=== PATIENT | male | born 1985 | race Caucasian/White ===

== ENCOUNTER 2023-04-19 21:08 | Emergency (ER) | payer SELFPAY ==
[~2023-04-19] VITALS: Ht 172.7 cm; Wt 98.6 kg
[2023-04-19 21:30] VITALS: BP 137/98; PULSE 93; RESP 16; TEMP 99.4; O2SAT 97
[2023-04-19 21:55] LABS: BASOPHILS % 0.3 % (0.0-2.0); EOSINOPHILS % 0.4 % (0.0-5.0); HEMATOCRIT. 42.1 % (42.0-52.0); HEMOGLOBIN. 14.1 g/dL (14.0-18.0); LYMPHOCYTES % 36.6 % (20.0-50.0); MEAN CORPUSCULAR HEMOGLOBIN 30.7 pg (28.0-32.0); MEAN CORPUSCULAR VOLUME 91.9 fL (80.0-94.0); MEAN PLATELET VOLUME 10.6 fl (7.4-10.4); MONOCYTES % 13.6 % (2.0-8.0); NEUTROPHILS % 49.1 % (40.0-76.0); PLATELET 151 x1000/uL (130-400); RED BLOOD CELL COUNT 4.58 mill/uL (4.7-6.1); RED CELL DISTRIBUTION WIDTH 15.1 % (11.6-14.6)
[2023-04-19 22:03] LABS: CHLORIDE 111 mEq/L (98-107)
== END 2023-04-20 01:17 | disposition home or self-care (01) ==
LOC: ER 04-20
DX: R07.89 Other chest pain (principal); Z98.890 Other specified postprocedural states
CPT/HCPCS: 36415; 71045; 80053; 84484; 85025; 93005; 99285

== ENCOUNTER 2023-06-01 02:26 | Emergency (ER) | payer SELFPAY ==
[~2023-06-01] VITALS: Ht 172.7 cm; Wt 100.0 kg
[2023-06-01 02:40] VITALS: BP 124/81; PULSE 101; RESP 16; TEMP 98.3; O2SAT 97
[2023-06-01] MEDS ORDERED: POLY10DR LEFTEYE (04:31)
== END 2023-06-01 04:56 | disposition home or self-care (01) ==
LOC: ER 02:26
DX: H10.33 Unspecified acute conjunctivitis, bilateral (principal); Z88.5 Allergy status to narcotic agent; Z98.890 Other specified postprocedural states
CPT/HCPCS: 99281

== ENCOUNTER 2023-06-06 10:28 | Emergency (ER) | payer MEDICAID ==
[~2023-06-06] VITALS: Ht 172.7 cm; Wt 100.0 kg
[~2023-06-06 10:28] MED LIST: POLY10DR LEFTEYE
[2023-06-06 10:48] VITALS: O2SAT 97
[2023-06-06 12:26] LABS: CLARITY URINE CLOUDY (CLEAR); COLOR URINE DARK YELLOW (YELLOW); GLUCOSE URINE NEGATIVE (NEGATIVE); KETONES URINE 1+ (NEGATIVE); LEUKOCYTE ESTERASE URINE NEGATIVE (NEGATIVE); NITRITE URINE NEGATIVE (NEGATIVE); OCCULT BLOOD URINE NEGATIVE (NEGATIVE); PH URINE 5.5 (4.5-8.0); PROTEIN URINE 1+ (NEGATIVE); SPECIFIC GRAVITY URINE 1.027 (1.005-1.030)
[2023-06-06 12:34] LABS: RBC URINE 0-2 /hpf (0-2); YEAST URINE NONE SEEN
[2023-06-06 13:10] LABS: BACTERIA URINE FEW; SQUAMOUS EPITHELIAL CELL URINE RARE /lpf (RARE/1+)
[2023-06-06 14:24] LABS: BASOPHILS % 0.2 % (0.0-2.0); DIFFERENTIAL COMMENT 0; EOSINOPHILS % 0.2 % (0.0-5.0); HEMOGLOBIN. 14.8 g/dL (14.0-18.0); MEAN CORPUSCULAR HEMOGLOBIN 30.3 pg (28.0-32.0); MEAN CORPUSCULAR HGB CONC 32.8 g/dL (31.0-37.0); MEAN CORPUSCULAR VOLUME 92.2 fL (80.0-94.0); MEAN PLATELET VOLUME 11.1 fl (7.4-10.4); MONOCYTES % 11.6 % (2.0-8.0); PLATELET 122 x1000/uL (130-400); RED BLOOD CELL COUNT 4.88 mill/uL (4.7-6.1); RED CELL DISTRIBUTION WIDTH 13.8 % (11.6-14.6); WHITE BLOOD COUNT 4.7 x1000/uL (4.5-11.0)
[2023-06-06 14:32] LABS: CHLORIDE 106 mEq/L (98-107); INDEX HEMOLYSI 1 (1-3); INDEX ICTERIC 1 (1-4); INDEX LIPEMIC 1 (1-3); POTASSIUM 3.5 mEq/L (3.5-5.1); SODIUM 137 mEq/L (136-145)
[2023-06-06 14:41] LABS: ALANINE AMINOTRANSFERASE 24 IU/L (13-61); ALBUMIN 4.1 g/dL (3.4-5.0); ASPARTATE AMINOTRANSFERASE 11 IU/L (15-37); BILIRUBIN TOTAL 0.6 mg/dL (0.1-1.0); CALCIUM 8.9 mg/dL (8.5-10.1); CARBON DIOXIDE 28 mEq/L (21-32); GLUCOSE 91 mg/dL (70-105); PROTEIN TOTAL 8.4 g/dL (6.0-8.3); TROPONIN I HIGH SENSITIVITY 4 ng/L (<78); UREA NITROGEN BLOOD 8 mg/dL (7-21)
[2023-06-06] MEDS ORDERED: NIRM1TAB PO (16:46)
[2023-06-06] MEDS ORDERED: TOPUD MT (16:46)
[2023-06-06] MEDS ORDERED: GUAI180L5 MT (16:46)
[2023-06-06] MEDS ORDERED: ASPI-986 MT (16:46)
[2023-06-06] MEDS ORDERED: AZIT250T12 MT (17:11)
[2023-06-06 17:18] VITALS: BP 134/84; PULSE 98; RESP 13; TEMP 98.6
== END 2023-06-06 17:26 | disposition home or self-care (01) ==
LOC: ER 10:28
DX: J45.909 Unspecified asthma, uncomplicated (principal); U07.1 COVID-19; K21.9 Gastro-esophageal reflux disease without esophagitis; Z98.890 Other specified postprocedural states; Z88.5 Allergy status to narcotic agent
CPT/HCPCS: 36415; 80053; 81003; 84484; 85025; 93005; 99284

== ENCOUNTER 2023-08-20 18:55 | Emergency (ER) | payer MEDICAID ==
[~2023-08-20] VITALS: Ht 172.7 cm; Wt 100.0 kg
[~2023-08-20 18:55] MED LIST changes: +ASPI-986 MT; +AZIT250T12 MT; +GUAI180L5 MT; +NIRM1TAB PO; +TOPUD MT
[2023-08-20 19:02] VITALS: BP 157/96; PULSE 92; RESP 18; TEMP 98.5; O2SAT 99
[2023-08-20] MEDS ORDERED: OMEP20TA23 MT (20:10)
== END 2023-08-21 03:51 | disposition left against medical advice (07) ==
LOC: ER 18:55
DX: M54.2 Cervicalgia (principal); M79.661 Pain in right lower leg; J45.909 Unspecified asthma, uncomplicated; Z88.5 Allergy status to narcotic agent; Z79.899 Other long term (current) drug therapy; Z98.890 Other specified postprocedural states
CPT/HCPCS: 99282

== ENCOUNTER 2023-08-22 17:34 | Emergency (ER) | payer MEDICAID ==
[~2023-08-22] VITALS: Ht 177.8 cm; Wt 80.0 kg
[~2023-08-22 17:34] MED LIST changes: +OMEP20TA23 MT
[2023-08-22 17:45] VITALS: O2SAT 100
[2023-08-22] MEDS ORDERED: BACITRACIN ZINC OINT UDPKT TOP ONE (20:15)
[2023-08-22] MEDS ORDERED: TETANUS, DIPHTHERIA, PERTUSSIS VAC/PF 0.5ML (>10YR OLD) IM ONE ×2 (20:15→22:45)
[2023-08-22] MEDS ORDERED: BACITRACIN ZINC OINT UDPKT TOP NR (22:45)
[2023-08-22 22:51] VITALS: BP 134/97; PULSE 100; RESP 18; TEMP 97.8
== END 2023-08-22 22:53 | disposition home or self-care (01) ==
LOC: ER 17:46
DX: S60.412A Abrasion of right middle finger, initial encounter (principal); J45.909 Unspecified asthma, uncomplicated; K21.9 Gastro-esophageal reflux disease without esophagitis; Z88.8 Allergy status to other drugs, medicaments and biological substances
CPT/HCPCS: 90715; 90471; 99283; Z7610

== ENCOUNTER 2023-09-23 13:13 | Emergency (ER) | payer MEDICAID ==
[~2023-09-23] VITALS: Ht 172.7 cm; Wt 91.0 kg
[2023-09-23 13:26] VITALS: BP 152/101; O2SAT 99
[2023-09-23] MEDS ORDERED: ACETAMINOPHEN 325MG TABLET PO ONE (14:15)
[2023-09-23 15:23] LABS: BASOPHILS % 0.1 % (0.0-2.0); DIFFERENTIAL COMMENT 0; EOSINOPHILS % 0.1 % (0.0-5.0); HEMATOCRIT. 45.5 % (42.0-52.0); HEMOGLOBIN. 14.9 g/dL (14.0-18.0); LYMPHOCYTES % 13.7 % (20.0-50.0); MEAN CORPUSCULAR HEMOGLOBIN 30.4 pg (28.0-32.0); MEAN CORPUSCULAR HGB CONC 32.9 g/dL (31.0-37.0); MEAN CORPUSCULAR VOLUME 92.4 fL (80.0-94.0); MONOCYTES % 9.8 % (2.0-8.0); NEUTROPHILS % 76.3 % (40.0-76.0); PLATELET 148 x1000/uL (130-400); RED BLOOD CELL COUNT 4.92 mill/uL (4.7-6.1); RED CELL DISTRIBUTION WIDTH 13.9 % (11.6-14.6); WHITE BLOOD COUNT 6.9 x1000/uL (4.5-11.0)
[2023-09-23 15:36] LABS: ALANINE AMINOTRANSFERASE 13 IU/L (10-49); ALBUMIN 4.7 g/dL (3.2-4.8); ASPARTATE AMINOTRANSFERASE 13 IU/L (<34); BILIRUBIN TOTAL 0.6 mg/dL (0.1-1.0); CALCIUM 9.7 mg/dL (8.7-10.4); CARBON DIOXIDE 28 mEq/L (21-32); CHLORIDE 106 mEq/L (98-107); CREATININE 0.8 mg/dL (0.6-1.3); GLUCOSE 76 mg/dL (70-105); POTASSIUM 4.3 mEq/L (3.5-5.1); SODIUM 139 mEq/L (136-145); UREA NITROGEN BLOOD 11 mg/dL (9-23)
[2023-09-23 16:23] VITALS: PULSE 92; RESP 18
[2023-09-23] MEDS ORDERED: ACETAMINOPHEN 325MG TABLET PO NR (16:30)
[2023-09-23] MEDS ORDERED: METH-653 MT (16:33)
[2023-09-23 16:50] VITALS: TEMP 98.2
== END 2023-09-23 16:58 | disposition home or self-care (01) ==
LOC: ER 13:13
DX: R51.9 Headache, unspecified (principal); M54.2 Cervicalgia; F41.9 Anxiety disorder, unspecified; J45.909 Unspecified asthma, uncomplicated; K21.9 Gastro-esophageal reflux disease without esophagitis
CPT/HCPCS: 36415; 80053; 85025; 93971; 99284

== ENCOUNTER 2023-09-28 00:48 | Emergency (ER) | payer MEDICAID ==
[~2023-09-28] VITALS: Ht 172.7 cm; Wt 92.0 kg
[~2023-09-28 00:48] MED LIST changes: +METH-653 MT
[2023-09-28 01:25] VITALS: BP 134/98; O2SAT 98
[2023-09-28 02:14] LABS: BASOPHILS % 0.2 % (0.0-2.0); EOSINOPHILS % 0.2 % (0.0-5.0); HEMATOCRIT. 45.9 % (42.0-52.0); HEMOGLOBIN. 15.8 g/dL (14.0-18.0); LYMPHOCYTES % 23.4 % (20.0-50.0); MEAN CORPUSCULAR HGB CONC 34.5 g/dL (31.0-37.0); MEAN CORPUSCULAR VOLUME 89.8 fL (80.0-94.0); MEAN PLATELET VOLUME 11.1 fl (7.4-10.4); MONOCYTES % 10.7 % (2.0-8.0); NEUTROPHILS % 65.5 % (40.0-76.0); PLATELET 173 x1000/uL (130-400); RED BLOOD CELL COUNT 5.12 mill/uL (4.7-6.1); RED CELL DISTRIBUTION WIDTH 13.9 % (11.6-14.6)
[2023-09-28 02:15] LABS: ALANINE AMINOTRANSFERASE 13 IU/L (10-49); ALBUMIN 4.7 g/dL (3.2-4.8); ASPARTATE AMINOTRANSFERASE 12 IU/L (<34); BILIRUBIN TOTAL 0.6 mg/dL (0.1-1.0); CARBON DIOXIDE 25 mEq/L (21-32); CHLORIDE 106 mEq/L (98-107); CREATININE 0.9 mg/dL (0.6-1.3); GLUCOSE 104 mg/dL (70-105); POTASSIUM 3.9 mEq/L (3.5-5.1); PROTEIN TOTAL 8.4 g/dL (6.0-8.3); SODIUM 139 mEq/L (136-145); UREA NITROGEN BLOOD 7 mg/dL (9-23)
[2023-09-28 03:31] LABS: ETHANOL BLOOD < 10 mg/dL (<10); TROPONIN I HIGH SENSITIVITY < 4 ng/L (3.0-53)
[2023-09-28] MEDS ORDERED: METH-653 MT (05:39)
[2023-09-28] MEDS ORDERED: MAG-55 MT (05:39)
[2023-09-28] MEDS ORDERED: MAGNESIUM/ALUMINUM HYDROXIDE/SIMETHICONE 30ML UDC PO ONE (05:45)
[2023-09-28 05:52] VITALS: PULSE 75; RESP 16; TEMP 98.1
== END 2023-09-28 05:55 | disposition home or self-care (01) ==
LOC: ER 00:48
DX: S13.4XXA Sprain of ligaments of cervical spine, initial encounter (principal); F41.9 Anxiety disorder, unspecified; K21.9 Gastro-esophageal reflux disease without esophagitis; J45.909 Unspecified asthma, uncomplicated; Z98.890 Other specified postprocedural states; Z88.5 Allergy status to narcotic agent; X58.XXXA Exposure to other specified factors, initial encounter; Y93.89 Activity, other specified; Y92.89 Other specified places as the place of occurrence of the external cause; Y99.8 Other external cause status
CPT/HCPCS: 36415; 71045; 80053; 80320; 83880; 84484; 85025; 93005; 99285; G0480

== ENCOUNTER 2023-10-04 20:12 | Emergency (ER) | payer MEDICAID ==
[~2023-10-04] VITALS: Ht 172.7 cm; Wt 89.4 kg
[~2023-10-04 20:12] MED LIST changes: +MAG-55 MT
[2023-10-04 20:42] VITALS: BP 130/90; PULSE 90; RESP 16; TEMP 98.2; O2SAT 97
[2023-10-04] MEDS ORDERED: AMOX1TAB16 MT (21:33)
== END 2023-10-04 22:00 | disposition home or self-care (01) ==
LOC: ER 20:12
DX: S91.051A Open bite, right ankle, initial encounter (principal); S90.511A Abrasion, right ankle, initial encounter; F41.9 Anxiety disorder, unspecified; J45.909 Unspecified asthma, uncomplicated; K21.9 Gastro-esophageal reflux disease without esophagitis; Z79.899 Other long term (current) drug therapy; W54.0XXA Bitten by dog, initial encounter; Y93.89 Activity, other specified; Y92.89 Other specified places as the place of occurrence of the external cause; Y99.8 Other external cause status
CPT/HCPCS: 99283